=== PATIENT | male | born 1970 | race Two or more races ===

== ENCOUNTER 2018-01-14 23:25 | Inpatient (IN) | payer OTHER ==
[~2018-01-14] VITALS: Ht 172.7 cm; Wt 93.9 kg
[2018-01-14] MEDS ORDERED: AVAPRO300 MG (23:58)
[2018-01-14] MEDS ORDERED: DILTIAZEM 24HR180 MG (23:58)
[2018-01-14] MEDS ORDERED: CARDURA1 MG (23:59)
[2018-01-14] MEDS ORDERED: FORTAMET1000 MG (23:59)
[2018-01-19] MEDS ORDERED: Mylicon 125MG PO (16:41)
[2018-01-19] MEDS ORDERED: CARdura 2MG TABLET PO (16:41)
[2018-01-19] MEDS ORDERED: Intestinex CAP PO (16:41)
[2018-01-19] MEDS ORDERED: AMOX-CLAV 875-1 EACH PO (16:41)
[2018-01-19] MEDS ORDERED: FLAGYL500MG PO (16:41)
[2018-01-19] MEDS ORDERED: FAMOTIDINE20 MG PO (16:41)
[2018-01-19] MEDS ORDERED: AVAPRO300 MG PO (16:41)
[2018-01-19] MEDS ORDERED: CARDIZEM CD180 MG PO (16:41)
== END 2018-01-19 18:49 | disposition home or self-care (01) | DRG 392 ==
LOC: ER 23:25 → MEDI 01-15 13:32
PROC: BW21Y0Z Computerized Tomography (CT Scan) of Abdomen and Pelvis using Other Contrast, Unenhanced and Enhanced (ICD-10-PCS; principal; 2018-01-15)
DX: K57.32 Diverticulitis of large intestine without perforation or abscess without bleeding (principal); E86.0 Dehydration; I10 Essential (primary) hypertension; E11.9 Type 2 diabetes mellitus without complications; M06.89 Other specified rheumatoid arthritis, multiple sites

== ENCOUNTER 2018-03-02 15:16 | Inpatient (IN) | payer OTHER ==
[~2018-03-02] VITALS: Ht 172.7 cm; Wt 93.9 kg
== END 2018-03-19 14:36 | disposition home or self-care (01) | DRG 331 ==
LOC: SURG 03-09 07:00 → O/R 03-16 07:55 → SURH 03-16 16:59 → SURG 03-16 17:55
PROVIDERS: Colon & Rectal Surgery
PROC: 0WQF4ZZ Repair Abdominal Wall, Percutaneous Endoscopic Approach (ICD-10-PCS; 2018-03-16)
PROC: 0DJD8ZZ Inspection of Lower Intestinal Tract, Via Natural or Artificial Opening Endoscopic (ICD-10-PCS; 2018-03-16)
PROC: 0DTN4ZZ Resection of Sigmoid Colon, Percutaneous Endoscopic Approach (ICD-10-PCS; principal; 2018-03-16 01:45)
DX: K57.32 Diverticulitis of large intestine without perforation or abscess without bleeding (principal); E86.0 Dehydration; E11.9 Type 2 diabetes mellitus without complications; I10 Essential (primary) hypertension; M06.89 Other specified rheumatoid arthritis, multiple sites; K43.9 Ventral hernia without obstruction or gangrene

== ENCOUNTER → 2018-03-02 | Outpatient (CLI) | payer OTHER ==
[~2018-03-02] MED LIST: AMOX-CLAV 875-1 EACH PO; AVAPRO300 MG; AVAPRO300 MG PO; CARDIZEM CD180 MG PO; CARDURA1 MG; CARdura 2MG TABLET PO; DILTIAZEM 24HR180 MG; FAMOTIDINE20 MG PO; FLAGYL500MG PO; FORTAMET1000 MG; Intestinex CAP PO; Mylicon 125MG PO
== END | disposition home or self-care (01) ==
LOC: RAD 13:38
DX: K57.32 Diverticulitis of large intestine without perforation or abscess without bleeding (principal); Z01.818 Encounter for other preprocedural examination

== ENCOUNTER 2018-10-18 05:12 | Emergency (ER) | payer OTHER ==
[~2018-10-18] VITALS: Ht 170.2 cm; Wt 97.5 kg
[2018-10-18] MEDS ORDERED: AVAPRO300 MG (05:35)
[2018-10-18] MEDS ORDERED: CARDURA1 MG (05:36)
[2018-10-18] MEDS ORDERED: METFORMIN HCL500 MG (05:36)
[2018-10-18] MEDS ORDERED: CARDIZEM CD240 MG (05:36)
[2018-10-18] MEDS ORDERED: KETO10TA2 PO (15:31)
[2018-10-18] MEDS ORDERED: LEVSIN/SL0.125 MG PO (15:31)
[2018-10-18] MEDS ORDERED: ZANTAC150 MG PO (15:31)
== END 2018-10-18 16:27 | disposition home or self-care (01) ==
LOC: ER 05:12
DX: R10.11 Right upper quadrant pain (principal); K76.0 Fatty (change of) liver, not elsewhere classified

== ENCOUNTER 2023-02-03 08:57 | Outpatient (CLI) | payer OTHER ==
[~2023-02-03 08:57] MED LIST changes: +CARDIZEM CD240 MG; +KETO10TA2 PO; +LEVSIN/SL0.125 MG PO; +METFORMIN HCL500 MG; +ZANTAC150 MG PO
== END 2023-02-03 09:12 | disposition home or self-care (01) ==
LOC: LAB 08:57
PROVIDERS: ATTEND Internal Medicine Hematology & Oncology
DX: D50.8 Other iron deficiency anemias (principal); R79.9 Abnormal finding of blood chemistry, unspecified; I10 Essential (primary) hypertension; R74.02 Elevation of levels of lactic acid dehydrogenase [LDH]; K76.89 Other specified diseases of liver; D63.8 Anemia in other chronic diseases classified elsewhere; D51.1 Vitamin B12 deficiency anemia due to selective vitamin B12 malabsorption with proteinuria; D51.0 Vitamin B12 deficiency anemia due to intrinsic factor deficiency; D63.1 Anemia in chronic kidney disease; E03.8 Other specified hypothyroidism; E06.3 Autoimmune thyroiditis; D55.0 Anemia due to glucose-6-phosphate dehydrogenase [G6PD] deficiency; C25.9 Malignant neoplasm of pancreas, unspecified; R97.8 Other abnormal tumor markers; R97.1 Elevated cancer antigen 125 [CA 125]; R97.0 Elevated carcinoembryonic antigen [CEA]; R97.20 Elevated prostate specific antigen [PSA]; D75.1 Secondary polycythemia; E11.9 Type 2 diabetes mellitus without complications; E78.2 Mixed hyperlipidemia; M06.9 Rheumatoid arthritis, unspecified; G47.33 Obstructive sleep apnea (adult) (pediatric)